=== PATIENT | female | born 1940 | race Caucasian/White ===

== ENCOUNTER 2019-03-25 07:03 | Inpatient (IN) ==
--- NOTE | 2019-03-16 08:15 | History & Physical Report ---
Date of Service March 16, 2019 date of Surgery: 03/25/19 Assessment & Plan (1) Osteoarthritis of left knee: Risks and benefits of procedure discussed in detail today, patient would like to proceed with a left total knee replacement at [facility] as scheduled. will obtain medical clearance prior to surgery as well as obtain PATs at [facility], is scheduled for an echocardiogram this Saturday. Will place on ASA 81mg po bid x 1 month post op, f/u 2 weeks post op for routine pos t-operative care and x-ray, sooner if having any problems. will make arrangements for HHPT at the time of discharge. At this point in time, has failed conservative measures and would like to proceed with surgical intervention. History of Present Illness Chief Complaint: left knee pain Primary Care Provider: Doreen Curran Ms Salmon is a 78 year old female who complains of left knee pain, presents for pre-op evaluation prior to a left total knee replacement at [facility] on 03/25/19. She presents with pain and decreased range of motion in her left knee. She states she has had pain for over a year now in both knees, left greater than her right. The symptoms occur intermittently and has gradually been worsening. Currently the patient states that the symptoms are moderate-severe. The pain is described as aching, stabbing and sharp. Worst pain is medial sided but is also anterior and lateral. She rates her current pain as 5/10 and worst is 8/10. The symptoms are aggravated by daily activities and walking. In addition to knee pain, she is also experiencing limping, stiffness, decreased range of motion and nighttime awakening. Patient is taking Tramadol and Tylenol for pain. Patient has had visco and cortisone injections. She had cortisone injections in both knees last week. Allergies Allergy/AdvReac Type Severity Reaction Status Date / Time No Known Allergies Allergy Verified 03/12/19 13:47 Home Medications Home Medications Medication Instructions Recorded Confirmed Type acetaminophen [Acetaminophen Extra 500 mg PO Q6H PRN 03/12/19 03/12/19 History Strength] cholecalciferol (vitamin D3) 1,000 unit PO QDD 03/12/19 03/12/19 History [Vitamin D3] citalopram 20 mg PO QDD 03/12/19 03/12/19 History furosemide 40 mg PO QAM 03/12/19 03/12/19 History lisinopril 10 mg PO QAM 03/12/19 03/12/19 History dprxsqzb-bmk-nggx-FA-lutein 1 tab PO QAM 03/12/19 03/12/19 History [Centrum Silver Women] simvastatin 40 mg PO QDD 03/12/19 03/12/19 History tramadol 50 mg PO Q6H PRN 03/12/19 03/12/19 History Past Med/Surg History Medical History Anxiety Chronic kidney disease STAGE 3 History of tachycardia PT STATES YEARS AGO - NOT CONTINUOUS ISSUES - SEES [place] [facility] - NO MEDS Hyperlipidemia Hypertension Osteoarthritis Surgical History Hx of total hysterectomy Family History Unknown No problems noted. Social History Preferred Language: Urdu Communication Ability: Effective Beliefs That Will Affect Care: None Current Living Situation: Alone Current Living Situation Comment: WANTS TO GO TO REHAB Feels Safe at Home: Yes Smoking Status: Never smoker Do You Dip or Chew Tobacco: No Second Hand Exposure: No Hx Alcohol Use: No Hx Substance Use: No Review of Systems Review of Systems: All systems reviewed & are unremarkable except as noted in HPI & below Constitutional: no fever, no chills and no sweats Respiratory: no cough and no dyspnea Cardiovascular: no chest pain, no dyspnea and no orthopnea Gastrointestinal: no abdominal pain, no nausea and no vomiting Musculoskeletal: as per Subjective / HPI Physical Exam Physical Exam: Ht: 5ft 6in Wt: 95.25kg BP: 126/68 Pulse: 72 Constitutional: WD/WN, vitals as above no acute distress Respiratory: normal respiratory effort, lungs clear to auscultation no respiratory distress and does not use accessory muscles Cardiovascular: RRR, no murmur, no edema Gastrointestinal (Abdomen): normal bowel sounds, soft, nontender, no hepatosplenomegaly Musculoskeletal: Left Knee: Lisa ambulates with a limp, she has no erythema, warmth noted, +1 effusion, tenderness greatest over her medial joint line and anterior knee, negative patellar apprehension , mild crepitation with motion, teo's negative, posterior drawer negative. positive mcmurrays medially, negative anterior drawer, knee stable with valgus/varus stress. no extensor lag. pain with active range of motion, AROM 0/3/110, Passive ROM 0/3/115. No pain with active/passive ROM of ankle. Lower Extremity Strength normal. Lower Extremity Neuro-vascular is normal Results & Data Diagnostic Findings Left Knee X-ray from 03-06-19 confirms advanced degenerative changes to the left knee, greatest medial compartments and patellofemoral joint, complete loss of joint space medial compartment, there is osteophyte formation and subchondral sclerosis. no acute bony pathology noted.
--- NOTE | 2019-03-16 10:57 | Anesthesiology Consultation ---
Date of Service March 16, 2019 Assessment & Plan (1) Encounter for pre-operative examination: PCP Clearance ([facility]) -- 03/22/19 = "Currently, patient's medical conditions are controlled and optimized. Recent labs EKG and chest x-ray reviewedunremarkable. Patient does have CKDGFR usually mid 30s to 40s. Mild anemiachronic and stable. Patient's recent echo revieweddoes show mild left ear/AR but otherwise unremarkable. Patient has no known issues with anesthesia in good functional status. Patient may proceed with surgery as scheduled. According to the revised cardiac risk index patient considered 0.9% risk of major cardiac event." Chart Review Chart Review: Acceptable Risk for Surgery and Patient seen in Pre Admission Testing Teaching & Discussion Instructed NPO after midnight before surgery, except medications with 15 cc of water. Medication instructions provided according to the PAT guidelines. History Surgery Operation Date: 03/25/19 09:40 Proposed Procedures p Left Total Knee Arthroplasty - Wesley Rios DO Height/Weight Height: 5 ft 6 in Weight: 97.1 kg Allergies Allergy/AdvReac Type Severity Reaction Status Date / Time No Known Allergies Allergy Verified 03/12/19 13:47 Medications Home Medications Medication Instructions Recorded Confirmed Last Taken acetaminophen [Acetaminophen Extra 500 mg PO Q6H PRN 03/12/19 03/12/19 Unknown Strength] cholecalciferol (vitamin D3) 1,000 unit PO QDD 03/12/19 03/12/19 Unknown [Vitamin D3] citalopram 20 mg PO QDD 03/12/19 03/12/19 Unknown furosemide 40 mg PO QAM 03/12/19 03/12/19 Unknown lisinopril 10 mg PO QAM 03/12/19 03/12/19 Unknown dxvxshum-ygt-dbue-FA-lutein 1 tab PO QAM 03/12/19 03/12/19 Unknown [Centrum Silver Women] simvastatin 40 mg PO QDD 03/12/19 03/12/19 Unknown tramadol 50 mg PO Q6H PRN 03/12/19 03/12/19 Unknown Past Medical History Medical History Anxiety Chronic kidney disease STAGE 3 History of tachycardia PT STATES YEARS AGO, S/P [employer], NO INTERVENTION OR MEDICATION NEEDED. Hyperlipidemia Hypertension Mild aortic stenosis see echo from 03/18/19 Osteoarthritis Exercise / Class Metabolic Activity II 4-5 Yardwork/Stairs/Walk up hill (Denies CP or SOB with 1 FOS, does daily. Somewhat limited by knee pain.) Past Family History Family History Unknown No problems noted. Past Surgical History Surgical History H/O colonoscopy Hx of total hysterectomy Past Anesthesia History No Hx of Anesthesia Complications and No Family Hx of Anesthesia Complications History of PONV No Hx of PONV and No Hx of Motion Sickness Social History Smoking Status: Never smoker Do You Dip or Chew Tobacco: No Hx Alcohol Use: No Hx Substance Use: No Review of Systems Pt denies any recent chest pain, shortness of breath, palpitations, fever or URI. +sinus drainage with reflexive cough Physical Exam Vital Signs BP: 151/81 (pt reports this is high for her, was just 130's/60's at surgeon's office and 110's systolic at PCP clearance appointment) P: 64bpm SPO2: 98% RA T: 98.2 F R: 16 ENMT Mouth: + dentures (partial upper); no chipped teeth and no loose teeth Thyromental Distance: > or= 3.5 Finger Breadths (3.5) Mallampati Class: II Neck normal visual inspection; neck extension not limited Respiratory normal respiratory effort Auscultation: lungs clear to auscultation bilaterally Cardiovascular Rate/Rhythm: regular rate and regular rhythm Heart Sounds: no murmur Vessels: no carotid bruit Extremities: no edema Testing Laboratory Results 03/16/19 11:19 03/16/19 11:19 PT 10.3 Seconds (9.0-12.0) 03/16/19 11:19 INR 1.0 (0.9-1.1) 03/16/19 11:19 APTT 25.9 Seconds (21.0-31.0) 03/16/19 11:19 Hemoglobin A1c 6.4 % (4.5-5.6) H 03/16/19 11:19 Urine Color Yellow 03/16/19 11:19 Urine Appearance Clear (Clear) 03/16/19 11:19 Urine pH 5.0 (4.5-7.5) 03/16/19 11:19 Ur Specific [place]man 1.023 (1.000-1.030) 03/16/19 11:19 Urine Protein Negative (Negative) 03/16/19 11:19 Urine Glucose (UA) Negative (Negative) 03/16/19 11:19 Urine Ketones Negative (Negative) 03/16/19 11:19 Urine Nitrite Negative (Negative) 03/16/19 11:19 Ur Leukocyte Esterase Negative (Negative) 03/16/19 11:19 Urine WBC (Auto) 1-5 /hpf (0-5) 03/16/19 11:19 Urine RBC (Auto) 5-10 /hpf (0-4) H 03/16/19 11:19 U Hyaline Cast (Auto) 1-5 /lpf (0-5) 03/16/19 11:19 U Epithel Cells (Auto) 10-20 /lpf (0-5) H 03/16/19 11:19 Urine Bacteria (Auto) Negative (Negative) 03/16/19 11:19 Blood Type O Positive 03/16/19 11:19 Antibody Screen NEGATIVE 03/16/19 11:19 GFR 39 consistent with CKD stage III. Electrocardiogram Date: 03/16/19 Findings: + NSR @ (60) Chest X-Ray Date: 03/16/19 Findings: + NAD Echocardiogram Date: 03/18/19 EF: 55-60% Normal left ventricular chamber size, wall thickness, contractility and systolic function. Degenerative aortic valve with mild stenosis (mean gradient 30 mmHg, ERICA 2 cm). Mild aortic insufficiency. Mild mitral annular calcification.
--- NOTE | 2019-03-16 11:09 | PAT Medication Instructions ---
Medication Instructions Date of Service March 16, 2019 Home Medications acetaminophen [Acetaminophen Extra Strength] 500 mg PO Q6H PRN cholecalciferol (vitamin D3) [Vitamin D3] 1,000 unit PO QDD citalopram 20 mg PO QDD furosemide 40 mg PO QAM lisinopril 10 mg PO QAM [Centrum Silver Women] 1 tab PO QAM simvastatin 40 mg PO QDD tramadol 50 mg PO Q6H PRN DO NOT take the morning of surgery furosemide 40 mg PO QAM lisinopril 10 mg PO QAM [Centrum Silver Women] 1 tab PO QAM Take morning of surgery With a small sip of water, OTHERWISE NOTHING TO EAT OR DRINK AFTER MIDNIGHT: acetaminophen [Acetaminophen Extra Strength] 500 mg PO Q6H PRN (if needed, may be taken up to four hours before surgery) tramadol 50 mg PO Q6H PRN (if needed, may be taken up to four hours before surgery) citalopram 20 mg PO QAM Take evening before surgery acetaminophen [Acetaminophen Extra Strength] 500 mg PO Q6H PRN (if needed) cholecalciferol (vitamin D3) [Vitamin D3] 1,000 unit PO QDD simvastatin 40 mg PO QDD tramadol 50 mg PO Q6H PRN (if needed) Other Notes If you have any questions please call us at [phone] or [phone] or [phone] or [phone]
[2019-03-16 12:02] LABS: Basophils # (auto) 0.02 K/uL (0-0.2); Basophils % (auto) 0.3 %; Eosinophils # (auto) 0.16 K/uL (0-0.5); Eosinophils % (auto) 2.2 %; Hemoglobin 11.4 g/dL (12.0-16.0); Immature Granulocytes # (auto) 0.04 K/uL (0.00-0.02); Immature Granulocytes % (auto) 0.6 %; Lymphocytes # (auto) 2.81 K/uL (1.2-3.4); Lymphocytes % (auto) 38.9 %; Mean Corpuscular Hgb Conc 32.6 g/dL (32-36); Mean Corpuscular Volume 91.9 fL (80-100); Mean Platelet Volume 10.1 fL (7.4-10.4); Monocytes # (auto) 0.62 K/uL (0.11-0.59); Monocytes % (auto) 8.6 %; Neutrophils # (auto) 3.58 K/uL (1.4-6.5); Neutrophils % (auto) 49.4 %; Platelet Count 209 K/uL (130-400); RDW Coefficient of Variation 14.4 % (11.5-14.5); RDW Standard Deviation 48.5 fL (36.4-46.3); Red Blood Count 3.81 M/uL (4.2-5.4); White Blood Count 7.23 K/uL (4.8-10.8)
--- NOTE | 2019-03-16 12:06 | XRay Report ---
XR chest Pre-admission PA/Lat CLINICAL HISTORY: Preoperative chest COMPARISON STUDY: No previous studies for comparison. FINDINGS: The cardiac and mediastinal contours are normal. There is no evidence of focal pulmonary co nsolidation. There is no evidence of failure. No pleural effusions are visualized.[ IMPRESSION: No active disease in the chest. Electronically signed by: Dar Flores M.D. 03/16/2019 12:05 PM
[2019-03-16 12:08] LABS: Albumin Level 3.7 gm/dl (3.4-5.0); BUN Creatinine Ratio 23.2 (10-20); Calcium 9.8 mg/dl (8.5-10.1); Creatinine Clr Calc Pharmacy 36.7 ml/min; Est GFR (African American) 39.3; Est GFR (Non-African American) 33.9; Potassium 4.6 mmol/L (3.5-5.1)
[2019-03-16 12:14] LABS: Appearance Urine Clear (Clear); Bacteria Urine Automated Negative (Negative); Bilirubin Urine Negative (Negative); Blood Urine 1+ (Negative); Color Urine Yellow; Glucose Urine UA Negative (Negative); Ketones Urine Negative (Negative); Leukocyte Esterase Urine Negative (Negative); Nitrite Urine Negative (Negative); Partial Thromboplastin Time 25.9 Seconds (21.0-31.0); Protein Urine Negative (Negative); Prothrombin Time 10.3 Seconds (9.0-12.0); Specific Gravity Urine 1.023 (1.000-1.030); Urobilinogen Urine Negative (Negative)
[2019-03-16 13:14] LABS: Estimated Average Glucose 137 mg/dl; Hemoglobin A1C 6.4 % (4.5-5.6)
[~2019-03-25 07:03] MED LIST: ACETAMINOPHEN 500 MG TAB PO SCH; BUPIVACAINE 0.25% 30 ML VIAL ONE; BUPIVACAINE 0.5 % 5 MG/1 ML PF 10ML VIAL ONE; CEFAZOLIN 2000MG 2,000 MG/15 ML SYR IV SCH; CeleBREX 200 MG CAP PO SCH; FAMOTIDINE 20 MG TAB PO SCH; GABAPENTIN 300 MG CAP PO SCH; LR 500ML BOLUS, THEN 15ML/HR IV SCH; LR 60ML/HR IV SCH; METOCLOPRAMIDE HCL 10 MG TABLET PO SCH; ROPIVACAINE 0.5% HCL/PF 150 MG, BUPIVACAINE 0.5% MPF 30 ML, EPINEPHrine 30MG/30ML (OR U... INSTIL SCH; TRANEXAMIC ACID 1,000 MG **IV Intra-op IV SCH; TRANEXAMIC ACID 1,000 MG **IV Pre-op IV SCH; dexAMETHasone 4 MG TAB PO SCH
[2019-03-25] MEDS ORDERED: MIDAZOLAM HCL 1 MG/ML 2ML VIAL ONE (07:54)
[2019-03-25] MEDS ORDERED: LIDOCAINE HCL 2% 2 ML VIAL/AMP(20MG/ML) INFIL ONE (07:54)
[2019-03-25] MEDS ORDERED: fentaNYL citrate 100 MCG/2 ML VIAL ONE (07:54)
[2019-03-25] MEDS ORDERED: PROPOFOL IV EMULSION 10 MG/ML 20 ML VIAL IV ONE (07:54)
[2019-03-25] MEDS ORDERED: ONDANSETRON INJ 2 MG/ML 2 ML VIAL ONE (08:00)
--- NOTE | 2019-03-25 08:25 | History & Physical Bridge Note ---
Date of Service March 25, 2019 History & Physical Bridge Note I have examined the patient, reviewed the History & Physical and in the interval since the performance of the History & Physical I have noted the following changes of clinical significance: no changes noted
[2019-03-25] MEDS ORDERED: ONDANSETRON INJ 2 MG/ML 2 ML VIAL IV PRN ×2 (08:34→12:11)
[2019-03-25] MEDS ORDERED: ATROPINE SULFATE 0.1 MG/ML 10ML SYR IV PRN (08:34)
[2019-03-25] MEDS ORDERED: ePHEDrine sulfate 50 MG/ML AMP IV PRN (08:34)
[2019-03-25] MEDS ORDERED: fentaNYL citrate 100 MCG/2 ML VIAL IV PRN (08:34)
[2019-03-25] MEDS ORDERED: ORTHO JOINT ANESTHETIC ONE (08:59)
[2019-03-25] MEDS ORDERED: BACITRACIN INJ 50,000 UNIT VIAL ONE (08:59)
[2019-03-25] MEDS ORDERED: ePHEDrine sulfate 50 MG/ML SYR ONE (10:06)
--- NOTE | 2019-03-25 10:33 | Operative Report ---
Post Operative Report Pre & Post Diagnosis Operation Date: 03/25/19 09:40 Pre-Op Diagnosis: Left Knee Degenerative Joint Disease Post-Op Diagnosis: Left Knee Degenerative Joint Disease Procedure Operation Date: 03/25/19 09:40 Actual Procedures p Left Total Knee Arthroplasty(Left) utilizing [employer] journey to non- block total knee arthroplasty size 4 femur size 3 tibia size 10 polyethylene size 29 oval patella- Wesley Rios DO Surgeon Wesley Rios DO Composing Room Machinist Apprentice Anthony ACKERMAN Estimated Blood Loss 5 Findings Consistent with Post-Op Diagnosis Presents with severe end-stage tricompartmental degenerative joint disease left knee no response to conservative management patient has been medial osteophytes marginal osteophyte subchondral cystic changes bone the bone changes eburnated bone with moderate to large effusion varus alignment Specimens Bone and cartilage Drains Medium bore Hemovac Complications none Disposition Accompanied Patient To Recovery: No Disposition: Recovery Room Indications Patient presents as a 78-year-old white female with severe end-stage tricompartmental degenerative joint disease no response to conservative management she is failed attempted injections including corticosteroids and Visco supplementation as well as bracing relative rest activity modification she presents for left total knee arthroplasty the above intraoperative findings are noted times surgery. Description of Procedure The patient was properly identified subsequently after proper prepping and draping of the left lower extremity anterior midline incision was made over the region of the extensor extensor mechanism after meticulous hemostasis was obtained and maintained in subcutaneous tissues a medial parapatellar incision was made The patella was subluxed lateralward the medial lateral gutter were cleaned from any hypertrophic synovitis and scar tissue of the distal femoral block was placed and the distal femoral osteotomy cut was made subsequently the chamfers anterior and posterior osteotomy cuts were made utilizing the 4-in-1 block the tibia was subsequently subluxed anteriorward medial and ateral meni scal remnants were excised in their entirety remnants of the anterior and posterior cruciate ligaments were excised in their entirety excellent exposure of the proximal tibia was obtained the tibial osteotomy guide was placed on the proximal tibial osteotomy cut was made once again the knee was irrigated with copious amounts of sterile saline solution the patella was subsequently everted lateralward thickened scar tissue around the patella was removed the patella was subsequently cut utilizing a freehand technique and was drilled prepared for final preparation and placement of patella socially flexion-extension gaps were checked and the equal and symmetric trials were placed to the appropriate femoral and tibial trials with poly-spacer being placed for equal flexion and extension gaps and full range of motion including extension to 0 and flexion to 140 the trial components after having been taken to recovery range of motion was subsequently removed meticulous hemostasis was obtained and maintained subsequently a knee block injection of joint cocktail including ropivacaine 0.5% 150 mg. Bupivacaine 0.5% epinephrine 1-200,030 mL's toradol 30 mg dexamethasone 4 mg ketamine 10 mg clonidine 100 micrograms normal saline solution 30 mg was infiltrated into the soft tissues of the posterior knee medial lateral gutters and periosteal synovium special attention was paid to protect neurovascular structures at all times subsequently trial components having been removed the knee was irrigated with sterile saline solution. debris was removed the proximal tibia was subsequently prepared and was made ready for the placement of the tibial component tibial component was also cemented and tamped into position the femoral component was subsequently placed and cemented in the position the patellar component was subsequently cemented in position because hemostasis once again obtained and maintained wound having been thoroughly irrigated with debridement and debridement lavage was performed as well as a medial parapatellar incision closed with #1 Vicryl in interrupted fashion subcutaneous was closed with #2 Vicryl skin was closed with skin clips. PA-C was necessary for prepping and drapping as well as wound closure of deep fascia Sub cutaneous tissue and skin and was necessary for the case. A sterile compressive dressing was placed patient was taken to recovery in stable condition of report dictated by Gabriel I attest to the content of the Intraoperative Record and any orders documented therein. Any exceptions are noted below. I attest to the content of the Intraoperative Record and any orders documented therein. Any exceptions are noted below.
--- NOTE | 2019-03-25 11:51 | Anesthesiology Progress Note ---
Date of Service March 25, 2019 Anesthesia Post Procedure Vital Signs Vital Signs: Temp Pulse Pulse Resp BP Pulse Ox 03/25/19 11:40 36.8 C 72 16 133/67 95 03/25/19 11:30 36.7 C 75 17 138/65 97 03/25/19 11:20 36.7 C 74 17 135/63 98 03/25/19 11:11 36.7 C 75 16 127/70 98 03/25/19 08:04 37 C 69 18 183/77 H 96 Pain Intensity Bilateral Knee: Pain Intensity: 3 Left Knee: Pain Intensity: 3 Transfer of Care Handoff Completed per policy Notes Mental Status: alert / awake / arousable and participated in evaluation Nausea / Vomiting: adequately controlled Pain: adequately controlled Airway Patency, RR, SpO2: stable & adequate BP & HR: stable & adequate Hydration State: stable & adequate Neuraxial Anesthesia: was administered and sensory block is resolving Anesthetic Complications: no major complications apparent and Pt Satisfied with anesthetic care
--- NOTE | 2019-03-25 11:54 | XRay Report ---
LEFT KNEE 2 VIEWS History: Left total knee arthroplasty. Degenerative arthritis. Postop. FINDINGS: The patient is status post a left total knee arthroplasty. The hardware is intact. No fract ure or dislocation. Surgical drains are in place. IMPRESSION: Left total knee arthroplasty. No evidence for hardware complication. Electronically signed by: Bakari Russo M.D. 03/25/2019 11:53 AM
[2019-03-25] MEDS ORDERED: OXYCODONE HCL IR 5 MG TAB (IMMEDIATE RELEASE) PO PRN (12:11)
[2019-03-25] MEDS ORDERED: HYDROmorphone INJ 1 MG/ML SYRINGE IV PRN (12:11)
[2019-03-25] MEDS ORDERED: ALUMINUM/MAGNESIUM SUSP 30 ML UDC PO PRN (12:11)
[2019-03-25] MEDS ORDERED: NALOXONE HCL 0.4 MG/1 ML VIAL/CARP IV PRN (12:11)
[2019-03-25] MEDS ORDERED: MAGNESIUM HYDROXIDE SUSP 30 ML UDC PO PRN (12:11)
[2019-03-25] MEDS ORDERED: BISACODYL 10 MG SUPP PR PRN (12:11)
[2019-03-25] MEDS ORDERED: METOCLOPRAMIDE HCL INJ 5 MG/ML 2 ML VIAL IV PRN (12:11)
[2019-03-25] MEDS: SODIUM CHLORIDE 0.9% 1000ML 1,000 ML IV SCH ×2 (13:41→23:42)
[2019-03-25] MEDS: ACETAMINOPHEN 500 MG TAB PO SCH ×2 (13:51→21:37)
[2019-03-25] MEDS: KETOROLAC TROMETHAMINE 15 MG/ML VIAL IV SCH ×2 (13:52→18:15)
[2019-03-25] MEDS: CITALOPRAM 20 MG TAB PO SCH (15:34)
[2019-03-25] MEDS: SIMVASTATIN 40 MG TAB PO SCH (15:34)
[2019-03-25] MEDS: CHOLECALCIFEROL 1,000 UNITS TAB PO SCH (15:34)
[2019-03-25] MEDS: CEFAZOLIN 2000MG 2,000 MG/15 ML SYR IV SCH (17:00)
[2019-03-25] MEDS: SENNA 8.6 MG TAB PO SCH (20:14)
[2019-03-25] MEDS: DOCUSATE SODIUM 100 MG CAP PO SCH (20:14)
[2019-03-25] MEDS: ASPIRIN 81 MG ECTAB PO SCH (20:14)
[2019-03-26] MEDS: KETOROLAC TROMETHAMINE 15 MG/ML VIAL IV SCH ×2 (00:44→05:46)
[2019-03-26] MEDS: CEFAZOLIN 2000MG 2,000 MG/15 ML SYR IV SCH (00:44)
[2019-03-26] MEDS: ACETAMINOPHEN 500 MG TAB PO SCH ×3 (05:46→20:12)
--- NOTE | 2019-03-26 07:10 | Orthopedic Progress Note ---
Date of Service March 26, 2019 Assessment & Plan (1) Status post total left knee replacement: POD #1 s/p Left TKA pt/ot dvt proph with SHASTA/SCD/ASA plan for d/c home with HHPT when stable would like rx for walker, has been placed in her chart. Subjective POD #1 s/p Left TKA denies CP/SOB, denies F/C, denies nausea Physical Exam Physical Exam: Vital Signs Temp Pulse Pulse Resp BP Pulse Ox 03/26/19 03:05 36.6 C 80 16 143/80 H 95 03/25/19 23:06 94 03/25/19 23:04 36.6 C 75 16 132/73 88 L 03/25/19 19:57 36.6 C 65 18 114/74 94 03/25/19 15:11 36.7 C 68 18 145/73 H 92 03/25/19 14:04 36.6 C 70 18 144/78 H 92 03/25/19 13:02 36.7 C 70 18 123/72 95 03/25/19 12:28 36.6 C 68 18 134/66 98 03/25/19 12:00 36.6 C 75 14 147/80 H 96 03/25/19 11:50 36.8 C 74 22 138/67 96 03/25/19 11:40 36.8 C 72 16 133/67 95 03/25/19 11:30 36.7 C 75 17 138/65 97 03/25/19 11:20 36.7 C 74 17 135/63 98 03/25/19 11:11 36.7 C 75 16 127/70 98 03/25/19 08:04 37 C 69 18 183/77 H 96 Intake and Output 03/25/19 03/26/19 03/26/19 22:59 06:59 14:59 Intake Total 400 / 3828.333 1726.666 / 3828.33 3 Output Total 200 / 540 175 / 540 Balance 200 / 3288.333 1551.666 / 3288.33 3 Intake: IV 1526.666 / 2828.33 3 Nss 1000ML 1,0 00 ml @ 100 mls/ 1526.666 / 1608.33 3 hr IV .Q10H SC H Rx#:[id number] Oral 400 / 600 200 / 600 Output: Urine 150 / 425 125 / 425 Drain Output 50 / 110 50 / 110 Left Knee Hemo vac #1 50 / 110 50 / 110 Other: # Unmeasured Voi ds 1 Vital Signs Temp 36.6 C 03/26/19 03:05 Pulse 80 03/26/19 03:05 Resp 16 03/26/19 03:05 BP 143/80 H 03/26/19 03:05 Pulse Ox 95 03/26/19 03:05 Intake & Output 03/25/19 03/26/19 03/26/19 18:59 06:59 18:59 Intake Total 1701.667 / 3828.33 3 2126.666 / 3828.33 3 Output Total 165 / 540 375 / 540 Balance 1536.667 / 3288.33 3 1751.666 / 3288.33 3 Weight 97.9 kg Intake: IV 1301.667 / 2828.33 3 1526.666 / 2828.33 3 Lr 1,000 ml @ 15 mls/hr IV . 1000 / 1000 Q24H BABAR Rx#:[id number] Nss 1000ML 1,0 00 ml @ 100 mls/ 81.667 / 4122.610 3704.666 / 1608.33 3 hr IV .Q10H SC H Rx#:[id number] Cyklokapron 1, 000 mg In Sodium 220 / 220 Chloride 100 m l @ 660 mls/hr IV 0630 BABAR Rx#:[id number] IV Perioperative 400 / 400 Oral 600 / 600 Output: Urine 150 / 425 275 / 425 Estimated Blood Loss 5 / 5 Drain Output 10 / 110 100 / 110 Left Knee Hemo vac #1 10 / 110 100 / 110 Other: # Unmeasured Voi ds 1 Constitutional: WD/WN, vitals as above no acute distress Musculoskeletal: left leg: NVDI, calf SNT, negative citlali sign. DP palpable, able to wiggle toes/ankle movement without difficulty. JAYLA dressing clean dry and intact. Results & Data Vital Signs (Past 12 Hours) Vital Signs Temp Pulse Resp BP Pulse Ox 03/26/19 03:05 36.6 C 80 16 143/80 H 95 03/25/19 23:06 94 03/25/19 23:04 36.6 C 75 16 132/73 88 L 03/25/19 19:57 36.6 C 65 18 114/74 94 Laboratory Results labs pending Diagnostic Findings LEFT KNEE 2 VIEWS History: Left total knee arthroplasty. Degenerative arthritis. Postop. FINDINGS: The patient is status post a left total knee arthroplasty. The hardware is intact. No fracture or dislocation. Surgical drains are in place. IMPRESSION: Left total knee arthroplasty. No evidence for hardware complication.
[2019-03-26 08:03] LABS: Hematocrit (blood only) 28.7 % (37-47); Hemoglobin 9.3 g/dL (12.0-16.0); Mean Corpuscular Hgb Conc 32.4 g/dL (32-36); Mean Corpuscular Volume 92.3 fL (80-100); Mean Platelet Volume 9.9 fL (7.4-10.4); Platelet Count 159 K/uL (130-400); RDW Coefficient of Variation 14.2 % (11.5-14.5); RDW Standard Deviation 47.4 fL (36.4-46.3); Red Blood Count 3.11 M/uL (4.2-5.4); White Blood Count 13.87 K/uL (4.8-10.8)
[2019-03-26] MEDS: DOCUSATE SODIUM 100 MG CAP PO SCH ×2 (08:28→20:12)
[2019-03-26] MEDS: MULTIVITAMIN TAB PO SCH (08:28)
[2019-03-26] MEDS: ASPIRIN 81 MG ECTAB PO SCH ×2 (08:29→20:13)
[2019-03-26] MEDS: LISINOPRIL 10 MG TAB PO SCH (08:29)
[2019-03-26 08:43] LABS: BUN Creatinine Ratio 21.5 (10-20); Calcium 8.6 mg/dl (8.5-10.1); Creatinine Clr Calc Pharmacy 30.8 ml/min; Est GFR (African American) 31.5; Est GFR (Non-African American) 27.2; Potassium 4.6 mmol/L (3.5-5.1)
[2019-03-26] MEDS: CITALOPRAM 20 MG TAB PO SCH (16:28)
[2019-03-26] MEDS: SIMVASTATIN 40 MG TAB PO SCH (16:28)
[2019-03-26] MEDS: CHOLECALCIFEROL 1,000 UNITS TAB PO SCH (16:28)
[2019-03-26] MEDS: SENNA 8.6 MG TAB PO SCH (20:13)
[2019-03-26] MEDS: CeleBREX 200 MG CAP PO SCH (20:13)
[2019-03-27] MEDS: ACETAMINOPHEN 500 MG TAB PO SCH (05:17)
[2019-03-27 06:18] LABS: Basophils # (auto) 0.01 K/uL (0-0.2); Basophils % (auto) 0.1 %; Eosinophils % (auto) 0.9 %; Hematocrit (blood only) 29.6 % (37-47); Hemoglobin 9.6 g/dL (12.0-16.0); Immature Granulocytes # (auto) 0.03 K/uL (0.00-0.02); Immature Granulocytes % (auto) 0.3 %; Lymphocytes % (auto) 23.2 %; Mean Corpuscular Hgb Conc 32.4 g/dL (32-36); Mean Corpuscular Volume 91.1 fL (80-100); Mean Platelet Volume 9.9 fL (7.4-10.4); Monocytes # (auto) 1.13 K/uL (0.11-0.59); Monocytes % (auto) 10.5 %; Neutrophils # (auto) 6.99 K/uL (1.4-6.5); Platelet Count 168 K/uL (130-400); RDW Coefficient of Variation 14.4 % (11.5-14.5); RDW Standard Deviation 47.9 fL (36.4-46.3); Red Blood Count 3.25 M/uL (4.2-5.4); White Blood Count 10.76 K/uL (4.8-10.8)
--- NOTE | 2019-03-27 06:55 | Orthopedic Progress Note ---
Date of Service March 27, 2019 Assessment & Plan (1) Status post total left knee replacement: POD #2 s/p Left TKA pt/ot dvt proph with SHASTA/SCD/ASA plan for d/c home with HHPT after PT today Subjective POD #2 s/p Left TKA denies CP/SOB, denies F/C, denies nausea Physical Exam Physical Exam: Vital Signs Temp Pulse Pulse Resp BP Pulse Ox 03/26/19 23:00 36.7 C 73 16 124/75 92 03/26/19 16:18 36.7 C 66 17 145/79 H 97 03/26/19 12:00 36.6 C 66 18 144/80 H 97 03/26/19 08:28 146/71 H 03/26/19 07:16 36.5 C 73 16 155/75 H 94 Intake and Output 03/26/19 03/26/19 03/27/19 14:59 22:59 06:59 Output Total 5 / 5 0 / 5 Balance -5 / -5 0 / -5 Output: Drain Output 5 / 5 0 / 5 Left Knee Hemo vac #1 5 / 5 0 / 5 Other: Other Intake Mimi rce vit # Unmeasured Voi ds 1 Constitutional: WD/WN, vitals as above no acute distress Musculoskeletal: left leg: NVDI, calf SNT, negative citlali sign. DP palpable, able to wiggle toes/ankle movement without difficulty. BRIDGET dressing clean dry and intact. expected post-operative bruising noted. Results & Data Vital Signs (Past 12 Hours) Vital Signs Temp Pulse Resp BP Pulse Ox 03/26/19 23:00 36.7 C 73 16 124/75 92 Laboratory Results Laboratory Results WBC 10.76 K/uL (4.8-10.8) 03/27/19 05:44 RBC 3.25 M/uL (4.2-5.4) L 03/27/19 05:44 Hgb 9.6 g/dL (12.0-16.0) L 03/27/19 05:44 Hct 29.6 % (37-47) L 03/27/19 05:44 MCV 91.1 fL (80-100) 03/27/19 05:44 MCH 29.5 pg (25-34) 03/27/19 05:44 MCHC 32.4 g/dL (32-36) 03/27/19 05:44 RDW Std Deviation 47.9 fL (36.4-46.3) H 03/27/19 05:44 RDW Coeff of Lillian 14.4 % (11.5-14.5) 03/27/19 05:44 Plt Count 168 K/uL (130-400) 03/27/19 05:44 MPV 9.9 fL (7.4-10.4) 03/27/19 05:44 Immature Gran % (Auto) 0.3 % 03/27/19 05:44 Neut % (Auto) 65.0 % 03/27/19 05:44 Lymph % (Auto) 23.2 % 03/27/19 05:44 [place] % (Auto) 10.5 % 03/27/19 05:44 Eos % (Auto) 0.9 % 03/27/19 05:44 Baso % (Auto) 0.1 % 03/27/19 05:44 Immature Gran # (Auto) 0.03 K/uL (0.00-0.02) H 03/27/19 05:44 Neut # (Auto) 6.99 K/uL (1.4-6.5) H 03/27/19 05:44 Lymph # (Auto) 2.50 K/uL (1.2-3.4) 03/27/19 05:44 [place] # (Auto) 1.13 K/uL (0.11-0.59) H 03/27/19 05:44 Eos # (Auto) 0.10 K/uL (0-0.5) 03/27/19 05:44 Baso # (Auto) 0.01 K/uL (0-0.2) 03/27/19 05:44 PT 10.3 Seconds (9.0-12.0) 03/16/19 11:19 INR 1.0 (0.9-1.1) 03/16/19 11:19 APTT 25.9 Seconds (21.0-31.0) 03/16/19 11:19 PTT Ratio 1.0 03/16/19 11:19 Sodium 143 mmol/L (136-145) 03/26/19 07:31 Potassium 4.6 mmol/L (3.5-5.1) 03/26/19 07:31 Chloride 112 mmol/L (98-107) H 03/26/19 07:31 Carbon Dioxide 23 mmol/L (21-32) 03/26/19 07:31 Anion Gap 9.0 (3-11) 03/26/19 07:31 BUN 38 mg/dl (7-18) H 03/26/19 07:31 Creatinine 1.75 mg/dl (0.6-1.2) H 03/26/19 07:31 Est Cr Clr Drug Dosing 30.8 ml/min 03/26/19 07:31 Est GFR ( Amer) 31.5 03/26/19 07:31 Est GFR (Non-Af Amer) 27.2 03/26/19 07:31 BUN/Creatinine Ratio 21.5 (10-20) H 03/26/19 07:31 Glucose 135 mg/dl (70-99) H 03/26/19 07:31 Estimat Average Glucose 137 mg/dl 03/16/19 11:19 Hemoglobin A1c 6.4 % (4.5-5.6) H 03/16/19 11:19 Calcium 8.6 mg/dl (8.5-10.1) 03/26/19 07:31 Albumin 3.7 gm/dl (3.4-5.0) 03/16/19 11:19 Urine Color Yellow 03/16/19 11:19 Urine Appearance Clear (Clear) 03/16/19 11:19 Urine pH 5.0 (4.5-7.5) 03/16/19 11:19 Ur Specific [place] 1.023 (1.000-1.030) 03/16/19 11:19 Urine Protein Negative (Negative) 03/16/19 11:19 Urine Glucose (UA) Negative (Negative) 03/16/19 11:19 Urine Ketones Negative (Negative) 03/16/19 11:19 Urine Blood 1+ (Negative) H 03/16/19 11:19 Urine Nitrite Negative (Negative) 03/16/19 11:19 Urine Bilirubin Negative (Negative) 03/16/19 11:19 Urine Urobilinogen Negative (Negative) 03/16/19 11:19 Ur Leukocyte Esterase Negative (Negative) 03/16/19 11:19 Urine WBC (Auto) 1-5 /hpf (0-5) 03/16/19 11:19 Urine RBC (Auto) 5-10 /hpf (0-4) H 03/16/19 11:19 U Hyaline Cast (Auto) 1-5 /lpf (0-5) 03/16/19 11:19 U Epithel Cells (Auto) 10-20 /lpf (0-5) H 03/16/19 11:19 Urine Bacteria (Auto) Negative (Negative) 03/16/19 11:19 Blood Type O Positive 03/16/19 11:19 Antibody Screen NEGATIVE 03/16/19 11:19
[2019-03-27] MEDS: LISINOPRIL 10 MG TAB PO SCH (08:12)
[2019-03-27] MEDS: CeleBREX 200 MG CAP PO SCH (08:12)
[2019-03-27] MEDS: ASPIRIN 81 MG ECTAB PO SCH (08:12)
[2019-03-27] MEDS: MULTIVITAMIN TAB PO SCH (08:12)
[2019-03-27] MEDS: DOCUSATE SODIUM 100 MG CAP PO SCH (08:12)
--- NOTE | 2019-03-27 08:37 | Discharge Summary ---
Date of Service date of discharge: March 27, 2019 date of admission: 03-25-19 Admission HPI Per Admitting Provider Ms Salmon is a 78 year old female who complains of left knee pain, presents for pre-op evaluation prior to a left total knee replacement at [facility] on 03/25/19. She presents with pain and decreased range of motion in her left knee. She states she has had pain for over a year now in both knees, left greater than her right. The symptoms occur intermittently and has gradually been worsening. Currently the patient states that the symptoms are moderate-severe. The pain is described as aching, stabbing and sharp. Worst pain is medial sided but is also anterior and lateral. She rates her current pain as 5/10 and worst is 8/10. The symptoms are aggravated by daily activities and walking. In addition to knee pain, she is also experiencing limping, stiffness, decreased range of motion and nighttime awakening. Patient is taking Tramadol and Tylenol for pain. Patient has had visco and cortisone injections. She had cortisone injections in both knees last week. Principal Diagnosis Left knee osteoarthritis Discharge Exam Vital Signs Temp Pulse Pulse Resp BP Pulse Ox 03/27/19 08:10 36.4 C L 66 62 18 155/78 H 92 03/27/19 07:15 36.4 C L 62 18 155/78 H 92 03/26/19 23:00 36.7 C 73 16 124/75 92 03/26/19 16:18 36.7 C 66 17 145/79 H 97 03/26/19 12:00 36.6 C 66 18 144/80 H 97 Intake and Output 03/26/19 03/27/19 03/27/19 22:59 06:59 14:59 Output Total 0 / 5 Balance 0 / -5 Output: Drain Output 0 / 5 Left Knee Hemovac #1 0 / 5 Other: # Unmeasured Voids 1 Weight 97.9 kg Patient Weight 03/28/19 06:59 Weight 97.9 kg Constitutional WD/WN, vitals as above no acute distress Musculoskeletal left leg: NVDI, calf SNT, negative citlali sign. DP palpable, able to wiggle toes/ankle movement without difficulty. BRIDGET dressing clean dry and intact. expected post-operative bruising noted. Discharge Data Allergies Allergy/AdvReac Type Severity Reaction Status Date / Time No Known Allergies Allergy Verified 03/25/19 08:00 Consultations 03/25/19 12:11 Consult Case Management - Discharge Planning Routine Procedures Performed Operation Date: 03/25/19 09:40 Actual Procedures p Left Total Knee Arthroplasty(Left) - Wesley Rios DO Ordered Studies 03/25/19 05:00 US - OR guided needle placemen Routine Hospital Course (1) Status post total left knee replacement: POD #2 s/p Left TKA pt/ot dvt proph with SHASTA/SCD/ASA plan for d/c home with HHPT after PT today Patient was a same day admission after undergoing a successful left TKA. She tolerated the procedure well. Post-operatively, her activity was progressed and well tolerated. Please refer to daily progress notes and PT notes for complete details. After exam on 03-27-19, patient felt to be stable for discharge home with HHPT. Patient will f/u in the office in 2 weeks for further evaluation including x-rays and incision check, sooner if having any issues or concerns. Below are pertinent labs/studies during their hospital stay: Laboratory Results WBC 10.76 K/uL (4.8-10.8) 03/27/19 05:44 RBC 3.25 M/uL (4.2-5.4) L 03/27/19 05:44 Hgb 9.6 g/dL (12.0-16.0) L 03/27/19 05:44 Hct 29.6 % (37-47) L 03/27/19 05:44 MCV 91.1 fL (80-100) 03/27/19 05:44 MCH 29.5 pg (25-34) 03/27/19 05:44 MCHC 32.4 g/dL (32-36) 03/27/19 05:44 RDW Std Deviation 47.9 fL (36.4-46.3) H 03/27/19 05:44 RDW Coeff of Lillian 14.4 % (11.5-14.5) 03/27/19 05:44 Plt Count 168 K/uL (130-400) 03/27/19 05:44 MPV 9.9 fL (7.4-10.4) 03/27/19 05:44 Immature Gran % (Auto) 0.3 % 03/27/19 05:44 Neut % (Auto) 65.0 % 03/27/19 05:44 Lymph % (Auto) 23.2 % 03/27/19 05:44 [place] % (Auto) 10.5 % 03/27/19 05:44 Eos % (Auto) 0.9 % 03/27/19 05:44 Baso % (Auto) 0.1 % 03/27/19 05:44 Immature Gran # (Auto) 0.03 K/uL (0.00-0.02) H 03/27/19 05:44 Neut # (Auto) 6.99 K/uL (1.4-6.5) H 03/27/19 05:44 Lymph # (Auto) 2.50 K/uL (1.2-3.4) 03/27/19 05:44 [place] # (Auto) 1.13 K/uL (0.11-0.59) H 03/27/19 05:44 Eos # (Auto) 0.10 K/uL (0-0.5) 03/27/19 05:44 Baso # (Auto) 0.01 K/uL (0-0.2) 03/27/19 05:44 PT 10.3 Seconds (9.0-12.0) 03/16/19 11:19 INR 1.0 (0.9-1.1) 03/16/19 11:19 APTT 25.9 Seconds (21.0-31.0) 03/16/19 11:19 PTT Ratio 1.0 03/16/19 11:19 Sodium 143 mmol/L (136-145) 03/26/19 07:31 Potassium 4.6 mmol/L (3.5-5.1) 03/26/19 07:31 Chloride 112 mmol/L (98-107) H 03/26/19 07:31 Carbon Dioxide 23 mmol/L (21-32) 03/26/19 07:31 Anion Gap 9.0 (3-11) 03/26/19 07:31 BUN 38 mg/dl (7-18) H 03/26/19 07:31 Creatinine 1.75 mg/dl (0.6-1.2) H 03/26/19 07:31 Est Cr Clr Drug Dosing 30.8 ml/min 03/26/19 07:31 Est GFR ( Amer) 31.5 03/26/19 07:31 Est GFR (Non-Af Amer) 27.2 03/26/19 07:31 BUN/Creatinine Ratio 21.5 (10-20) H 03/26/19 07:31 Glucose 135 mg/dl (70-99) H 03/26/19 07:31 Estimat Average Glucose 137 mg/dl 03/16/19 11:19 Hemoglobin A1c 6.4 % (4.5-5.6) H 03/16/19 11:19 Calcium 8.6 mg/dl (8.5-10.1) 03/26/19 07:31 Albumin 3.7 gm/dl (3.4-5.0) 03/16/19 11:19 Urine Color Yellow 03/16/19 11:19 Urine Appearance Clear (Clear) 03/16/19 11:19 Urine pH 5.0 (4.5-7.5) 03/16/19 11:19 Ur Specific [place] 1.023 (1.000-1.030) 03/16/19 11:19 Urine Protein Negative (Negative) 03/16/19 11:19 Urine Glucose (UA) Negative (Negative) 03/16/19 11:19 Urine Ketones Negative (Negative) 03/16/19 11:19 Urine Blood 1+ (Negative) H 03/16/19 11:19 Urine Nitrite Negative (Negative) 03/16/19 11:19 Urine Bilirubin Negative (Negative) 03/16/19 11:19 Urine Urobilinogen Negative (Negative) 03/16/19 11:19 Ur Leukocyte Esterase Negative (Negative) 03/16/19 11:19 Urine WBC (Auto) 1-5 /hpf (0-5) 03/16/19 11:19 Urine RBC (Auto) 5-10 /hpf (0-4) H 03/16/19 11:19 U Hyaline Cast (Auto) 1-5 /lpf (0-5) 03/16/19 11:19 U Epithel Cells (Auto) 10-20 /lpf (0-5) H 03/16/19 11:19 Urine Bacteria (Auto) Negative (Negative) 03/16/19 11:19 Blood Type O Positive 03/16/19 11:19 Antibody Screen NEGATIVE 03/16/19 11:19 Total Time Total Time Spent Total Time Spent (In Minutes): 20 Total Time Includes: Examination of the Patient, Discharge Planning and Medication Reconciliation Discharge Plan Discharge Items Patient Disposition: Home - Home Health Services Reason For Visit: Left Knee Degenerative Joint Disease Discharge Diagnosis: Left Total Knee Replacement Condition: Good Discharge Goals: Decrease discomfort, Increase independence and Improve nutritional status Activity: Per 'Additional Instructions' section Lifting: Wait until after follow-up appointment Weightbearing: Left weightbearing Weightbearing Comment: WBAT with walker Non-emergency contact: Primary Care Provider and Surgeon Call non-emergency contact if: you have any medication questions, your temperature is above 101, your wound has increased redness, your wound has increased drainage and your wound pain has increased Follow-up/Referrals: Doreen Curran M.D. [Primary Care Provider] - Diet: Regular Addtl Provider Instructions: ACTIVITY RECOMMENDATIONS: SELF CARE INSTRUCTIONS AFTER TOTAL KNEE REPLACEMENT A. You may need to continue a physical therapy program after discharge from the hospital. There are several options available to you. Your doctor will assist you in selecting the best one for you. 1. An out-patient facility 2 to 3 times a week for therapy or home therapy. 2. Continue working on all exercises taught to you in the hospital. Your goals should be to increase bending of your knee to 90 degrees and beyond and to fully straighten your knee. B. You may progress at your own pace from walking with a walker or crutches to a cane; then to no assistive devices. C. Make walking a part of your daily routine. Be up as much as comfortable with rest periods throughout the day. Rest with leg elevation is very important. Use the ice wrap frequently for the first 3-4 weeks. D. There are no restrictions on activities. You may ride in a car, shop, participate in flitch hanger and all social activities. E. Wear the long elastic stockings (SHASTA hose) 20 hours a day for 2 weeks after surgery. They can be removed several times a day for laundering and for a bath. F. You may shower, no tub baths until cleared by your doctor. SPECIAL CARE INSTRUCTIONS: VERY IMPORTANT TO READ AND REVIEW A. There are a few signs you need to watch for after you are home. Call [facility] if you notice any of the followin. Increased severe knee pain. Some pain is expected especially when you exercise. 2. Increased swelling in your leg or knee; pain or swelling of the calf muscle in either lower leg. 3. Any fluid drainage from the incision. 4. Shortness of breath or chest pain. B. Please call [facility] at if you have any concerns or questions about your operation or recovery. The doctor or his nurse will return your call promptly. C. You must take antibiotics before dental work, bladder, bowel or other surgery. Your doctor will provide you with a permanent care to carry describing this precaution. IMPORTANT: * REMEMBER TO TAKE ASPIRIN, 81 MG, TWICE DAILY FOR 4 WEEKS UNLESS OTHERWISE DIRECTED. THIS IS YOUR BLOOD THINNER. * HIGH RISK PATIENTS MAY BE PRESCRIBED A STRONGER BLOOD THINNER. THIS WILL BE PROVIDED AT DISCHARGE. * CALL IF INCREASED PAIN, REDNESS, DRAINAGE OR FEVER GREATER THAT 101. * WEAR SHASTA HOSE 20 HOURS PER DAY FOR 2 WEEKS. * BRIDGET Dressing- This is a large suction dressing covering your incision. This will help pull any excess drainage from the wound and allow your incision to heal properly. You may shower with this if you can keep the unit outside of the shower. If any bleeding or leakage is noted please call your doctor's office. This will remain on your incision for 7 days and then should be removed. This can be done yourself or by the home nursing staff if applicable. The entire unit is disposable once removed. Once removed, keep incision clean and dry. If redness or drainage is noted, please call your surgeon. ONCE BRIDGET IS REMOVED, FOLLOW THESE INSTRUCTIONS DERMABOND Pr[place]- This is a mesh tape dressing that is covered with glue. It should remain in place until the incision is properly healed, usually 10-14 days. This dressing is designed to naturally slough off. You may trim the excess mesh tape as it peels off. Incision may be briefly wet in a shower. Dry immediately by blotting with a clean, dry towel. Do not bath or swim until instructed by your doctor. Do not scratch, rub, or pick at the dressing. Do not apply any topical ointments or lotions until dressing is completely removed and/or instructed by your doctor. There may be a small piece of suture material at one end of your incision. Do not pull or trim this. If it is bothersome or catching on clothing, you may cover it with a band-aid. FOLLOW UP VISIT: If appointment is not already scheduled: Please call [facility] to make a follow-up appointment for 2 weeks after your surgery at . Prescriptions: New celecoxib [Celebrex] 200 mg Capsule 200 mg PO BID 30 Days Qty: 60 RF: 0 aspirin [Ecotrin Low Strength] 81 mg Tablet,Delayed Release (Dr/Ec) 81 mg PO BID 30 Days Qty: 60 RF: 0 acetaminophen [Tylenol Extra Strength] 500 mg Tablet 1,000 mg PO Q8 14 Days Qty: 84 RF: 0 oxycodone 5 mg Tablet 5 - 10 mg PO Q4H PRN (Reason: pain) Qty: 30 RF: 0 docusate sodium 100 mg Capsule 100 mg PO BID 10 Days Qty: 20 RF: 0 cefadroxil 500 mg capsule 500 mg PO BID 10 Days Qty: 20 RF: 0 Continued furosemide 40 mg Tablet 40 mg PO QAM RF: 0 simvastatin 40 mg Tablet 40 mg PO QDD RF: 0 citalopram 20 mg Tablet 20 mg PO QDD RF: 0 lisinopril 10 mg Tablet 10 mg PO QAM RF: 0 cholecalciferol (vitamin D3) [Vitamin D3] 1,000 unit Capsule 1,000 unit PO QDD RF: 0 Centrum Silver Women 8 mg iron-400 mcg-300 mcg Tablet 1 tab PO QAM RF: 0 Discontinued tramadol 50 mg Tablet 50 mg PO Q6H PRN (Reason: Pain) RF: 0 acetaminophen [Acetaminophen Extra Strength] 500 mg Tablet 500 mg PO Q6H PRN (Reason: PAIN ) RF: 0 Stand-Alone Forms: [facility], Opioid Pain Management [facility]/Other Patient Handouts: Prediabetes, Diabetes Healthy Meals, Diabetes Carbs, Diabetes Exercise Benefits Discharge Orders: Discharge Order (Routine); Ordered 03/27/19 Ordered By: Anthony Adam Admission Data Admit Date/Time: 03/25/19 11:15 Attending Provider: Wesley Rios Admit Provider: Wesley Rios Primary Care Provider: Doreen Curran V. Service: Surgical Services Other Interventions: Discharge Summary Assessment (RN) Last Done: 03/27/19 08:10 Pending Studies at Discharge: No
== END 2019-03-27 11:10 | disposition home health service (06) | DRG 470 ==
LOC: ASU 07:03 → 3E 11:15
DX: N18.3 Chronic kidney disease, stage 3 (moderate); F41.9 Anxiety disorder, unspecified; Z79.899 Other long term (current) drug therapy; E78.5 Hyperlipidemia, unspecified; I12.9 Hypertensive chronic kidney disease with stage 1 through stage 4 chronic kidney disease, or unspecified chronic kidney disease; M17.12 Unilateral primary osteoarthritis, left knee